=== PATIENT | female | born 1995 | race Hispanic/Latino ===

== ENCOUNTER 2017-12-29 22:26 | Emergency (ER) | payer OTHER ==
[2017-12-30] MEDS ORDERED: DOXYCYCLINE HYCLATE 100 MG TABLET PO ONE (00:04)
== END 2017-12-30 01:24 | disposition home or self-care (01) ==
LOC: EDH 22:26
DX: S41.132A Puncture wound without foreign body of left upper arm, initial encounter (principal); S41.131A Puncture wound without foreign body of right upper arm, initial encounter; S81.832A Puncture wound without foreign body, left lower leg, initial encounter; S81.831A Puncture wound without foreign body, right lower leg, initial encounter; Z88.1 Allergy status to other antibiotic agents; Z88.8 Allergy status to other drugs, medicaments and biological substances; W55.01XA Bitten by cat, initial encounter; Y93.89 Activity, other specified; Y92.89 Other specified places as the place of occurrence of the external cause; Y99.8 Other external cause status